=== PATIENT | female | born 1965 | race Caucasian/White ===

== ENCOUNTER 2021-11-08 11:35 | Inpatient (IN) | payer OTHER, SELFPAY ==
--- NOTE | ~2021-11-08 | XR_ITS ---
EXAMINATION: XR chest 1V portable EXAM DATE: 11/08/2021 15:11 INDICATION: COVID. Shortness of air. TECHNIQUE: Portable AP frontal chest x-ray was obtained. There is no prior study for comparison. FINDINGS: Diffuse airspace disease, COVID pneumonia. No pneumothorax or pleural effusion. Cardiomedia stinal silhouette is normal. There are no osseous abnormalities identified. IMPRESSION: Diffuse COVID pneumonia. Reviewed, dictated and finalized at location A. CE MATRON IMPRESSION: Diffuse COVID pneumonia.
--- NOTE | ~2021-11-08 | XR_ITS ---
EXAMINATION: XR chest 1V portable INDICATION: Shortness of breath TECHNIQUE: Portable AP chest at 0634 hours COMPARISON: 11/08/2021 FINDINGS: Diffuse interstitial and airspace opacities persist with slight interval improvement. No pl eural effusion or pneumothorax is identified. The cardiomediastinal silhouette is normal. IMPRESSION: 1. Diffuse lung disease with slight interval improvement, consistent with COVID 19 pneumonia. Reviewed, dictated and finalized at location A. H BOSS
--- NOTE | ~2021-11-08 | US_ITS ---
EXAMINATION: US abdomen limited DATE: 11/09/2021 15:39 INDICATION: Abnormal liver function tests. TECHNIQUE: Multiple grayscale and Doppler ultrasound images of the abdomen were obtained. COMPARISON: None FINDINGS: The visualized portions of the head, body, and tail of the pancreas are normal. The liver i s normal without focal lesion. No liver surface nodularity. There is normal flow in main portal vein. The gallbladder is normal in size. No gallstones or gallbladder wall thickening. There was no sonogr aphic [place] sign. The common duct is normal and measures 5 mm. IMPRESSION: 1. Normal right upper quadrant ultrasound. Reviewed, dictated and finalized at location A. E TELEVISION ACCESS COORDINATOR
--- NOTE | ~2021-11-08 | CT_ITS ---
EXAMINATION: CT abdomen pelvis w con DATE: 11/10/2021 14:33 INDICATION: Diarrhea. TECHNIQUE: Computed tomography (CT) of the abdomen and pelvis was performed with 100 mL Omnipaque 350 intravenous contrast. Automated exposure control and iterative reconstruction technique were employe d. The dose-length product was 763.59 mGy-cm. COMPARISON: Chest CT 11/08/2021 FINDINGS: The visualized portions of the lung bases demonstrate airspace and groundglass opacities in volving the lower lobes, right middle lobe, and lingula. No pleural effusion. The heart size is masoud l. No pericardial effusion. There is a small sliding hiatal hernia. The liver demonstrates focal stea tosis adjacent to ligamentum teres. The spleen, pancreas, and adrenal glands are normal. There are cy sts in the kidneys measuring up to 8 mm on the right. Pelvic floor relaxation is noted. There is dive rticulosis of the colon without evidence of diverticulitis. The appendix is normal. There are no path ologically enlarged lymph nodes. There is no free intraperitoneal fluid. There is mild thoracolumbar spondylosis. IMPRESSION: 1. Stable diffuse lung disease, consistent with COVID-19 pneumonia. 2. Small sliding hiatal hernia. Reviewed, dictated and finalized at location A. SETTER APPRENTICE
--- NOTE | ~2021-11-08 | CT_ITS ---
EXAMINATION: CTA chest PE protocol DATE: 11/12/2021 17:57 WATER RESOURCES ENGINEER INDICATION: Unable to take deep breath. Increasing d-dimer. Dyspnea. TECHNIQUE: Computed tomographic angiography (CTA) of the chest was performed with 100 mL Omnipaque-35 0 intravenous contrast. The dose-length product was 689.93 mGy-cm. Maximum intensity projection 3D-re constructions of the aorta and other arteries were constructed by the technologist on a separate work station. COMPARISON: None. FINDINGS: Study is technically adequate without evidence for pulmonary embolism. Extensive patchy lucinaa ateral airspace consolidation, consistent with pneumonia. Findings have progressed slightly compared with prior examination allowing for differences of technique. No evidence for aortic aneurysm or diss ection. Heart size normal. No significant pleural or pericardial effusion. The upper abdomen is gross ly unremarkable. No pneumothorax. Small hiatal hernia. Mild thoracic spondylosis. IMPRESSION: 1. No evidence for pulmonary embolism. 2: Subtle progression of extensive bilateral pneumonia. Reviewed, dictated and finalized at location A. R RESOURCES ENGINEER
--- NOTE | ~2021-11-08 | CT_ITS ---
EXAMINATION: CTA chest PE protocol EXAM DATE: 11/08/2021 17:56 INDICATION: Shortness of breath. TECHNIQUE: Spiral CTA of the chest (pulmonary arteries) was performed with 100 cc Omnipaque 350 intr avenous contrast injection. Images were acquired during the pulmonary arterial phase. Coronal maxi mum intensity projection 3D-reconstructions were created by the technologist on dedicated workstation . Axial, coronal and sagittal reformatted images were reviewed. The dose-length product (DLP) for t his examination was 696.77 mGy-cm. The exposure was tailored according to patient size (auto mA exp osure control), and iterative reconstruction (ASIR) was used as additional dose reduction technique. There is no prior study for comparison. FINDINGS: There are no pulmonary emboli in the 1st through 3rd order (central and interlobar) pulmon vasile arteries. Some loss of attenuation in the segmental pulmonary arteries due to respiratory motion , but no intraluminal filling defects suspected. No thoracic aortic dissection. Moderate to large amount of bilateral groundglass airspace disease, appearance consistent with acute stage COVID pneumo tyrese, please clinically correlate. There are no pleural or pericardial effusions. Tracheobronchial tree is patent. There is no mediastinal, hilar or axillary lymphadenopathy. There is no pneumotho rax. Heart normal in size. No evidence of coronary arterial calcification. There is small sliding gastroesophageal hiatal hernia. There is thoracic spondylosis without osteoblastic or osteolytic le sions identified. IMPRESSION: 1. Limited segmental evaluation, but no pulmonary emboli are suspected. 2. Diffuse COVID pneumonia. Reviewed, dictated and finalized at location A. EGNATING MACHINE OPERATOR
[2021-11-08 11:49] VITALS: BP 148/88; PULSE 95; RESP 24; TEMP 36.4; O2SAT 92
--- NOTE | 2021-11-08 15:13 | PC.NURSE ---
pt 85% on room air while ambulating
[2021-11-08] MEDS: DEXAMETHASONE SOD PHOS INJ 4 MG/ML VIAL 6 MG IV PUSH (15:17)
[2021-11-08 15:20] VITALS: BP 131/61; PULSE 92; RESP 27; O2SAT 98
[2021-11-08 15:25] LABS: Basophils Percent Auto 0.3 % (0.2-1.2); Hematocrit 40.5 % (37.0-47.0); Hemoglobin 13.4 g/dL (12.0-15.0); Immature Granulocyte Absolute 0.07 K/mm3 (0.00-0.031); Immature Granulocyte Percent A 0.8 % (0-0.5); Lymphocytes Absolute Auto 0.63 K/mm3 (0.9-3.2); Lymphocytes Percent Auto 6.8 % (18.3-44.2); Mean Corpuscular HGB Conc 33.1 g/dl (32-36); Mean Corpuscular Volume 90.6 fl (80-100); Mean Platelet Volume 9.9 fl (7.4-10.4); Monocytes Absolute Auto 0.2 K/mm3 (0.1-0.6); Monocytes Percent Auto 1.9 % (2.6-8.5); Neutrophils Absolute Auto 8.4 K/mm3 (1.3-6.7); Neutrophils Percent Auto 90.2 % (45.5-73.1); Platelet Count Result 185 k/mm3 (150-375); Red Blood Count 4.47 M/mm3 (4.2-5.4); Red Cell Distribution Width 13.6 % (11.5-14.5); White Blood Count 9.3 K/mm3 (4.5-10.0)
[2021-11-08 15:42] LABS: Alanine Aminotransferase 171 U/L (4-35); Albumin Level 3.8 g/dL (3.5-5.1); Alkaline Phosphatase 153 U/L (38-126); Anion Gap 11 mmol/L (8-16); Aspartate Amino Transferase 150 U/L (14-36); Bilirubin,Total 0.5 mg/dL (0.2-1.3); Blood Urea Nitrogen 11 mg/dL (7-17); CRP > 9.0 mg/dL (<1.0); Calcium 8.2 mg/dL (8.4-10.2); Carbon Dioxide 24 mmol/L (22-30); Chloride 99 mmol/L (98-107); Estimated CRCL calculation 82 ml/min; Estimated Glomerular Filt Rate > 60; Glucose 120 mg/dL (65-110); Potassium 3.6 mmol/L (3.4-5.0); Sodium 134 mmol/L (137-145)
--- NOTE | 2021-11-08 15:53 | ED.SOB ---
HPI - SOB/Dyspnea General Chief Complaint: Shortness of Breath/Dyspnea Stated Complaint: covid positive/sob Time Seen by Provider: 11/08/21 14:49 History of Present Illness HPI Narrative: Patient is a 56-year-old female who presents ER with shortness of breath. Worsening over the last 2 to 3 days. Patient was diagnosed with COVID-19 on 10/31/2021. Patient is unvaccinated. Patient reports he has been having fevers and chills. She has been having progressive weakness and fatigue as well. She does report she has mild improvement with shortness of breath when she takes Tylenol because she feels like she can get a better breath. No hemoptysis. Related Data Home Medications Medication Instructions Recorded Confirmed aspirin [Adult Aspirin] 11/08/21 levothyroxine 11/08/21 Allergies Allergy/AdvReac Type Severity Reaction Status Date / Time Cephalosporins AdvReac Hives Verified 11/08/21 15:18 Review of Systems Review of Systems: All systems reviewed & are unremarkable except as noted in HPI and below Constitutional: Constitutional: Reports chills, Reports fatigue, Reports fever(s) and Reports weakness ENT: Denies nasal congestion and Denies sore throat Cardiovascular: Cardiovascular: Denies chest pain, Denies rapid heart rate and Denies radiating jaw, neck or arm pain Respiratory: Respiratory: Reports chest congestion, Reports cough, Reports dyspnea and Denies wheezing Gastrointestinal: Gastrointestinal: Denies abdominal pain, Denies nausea and Denies vomiting Genitourinary: Genitourinary: Denies nocturia and Denies dysuria PMFSH Past Medical History Medical History (Updated 11/08/21 @ 18:05 by Lu Brooke PA-C) Hypothyroidism Surgical History Surgical History (Updated 11/08/21 @ 16:20 by Gopi Perez MD) No history of previous surgery Social History Social History (Updated 11/08/21 @ 18:06 by Lu Brooke PA-C) Social History: The patient lives in [place] with her family. She is self-employed. Lifelong nonsmoker. No alcohol or illicit substance abuse. She designates her , Bright Wilkes, as her surrogate decision maker and she wishes to be a full code. Exam Narrative: GENERAL: Ill-appearing, well-nourished, and in no acute distress. HEAD: Normocephalic, atraumatic. CHEST: Diffuse rales with poor inspiratory lung volumes. Mild respiratory distress. HEART: Regular rate and rhythm. Normal peripheral pulses. ABDOMEN: Soft, nontender, nondistended. EXTREMITIES: Normal range of motion. No edema. SKIN: Warm, dry, no rash. NEURO: Alert and oriented x3. PSYCH: Normal mood and affect. Course Course Emergency Course: Patient informed results. Admit to hospitalist service. After discussing with hospitalist there would like patient to have a CTA of the chest rule out PE. Patient will begin receiving scheduled albuterol inhaler treatments. She also received IV Decadron. Vital Signs Vital signs: Vital Signs Temperature 97.6 F 11/08/21 11:49 Pulse Rate 95 11/08/21 11:49 Respiratory Rate 24 H 11/08/21 11:49 Blood Pressure 148/88 H 11/08/21 11:49 Pulse Oximetry 92 11/08/21 11:49 Temperature 97.6 F 11/08/21 11:49 Pulse Rate 92 11/08/21 15:20 Respiratory Rate 27 H 11/08/21 15:20 Blood Pressure 131/61 11/08/21 15:20 Pulse Oximetry 98 11/08/21 15:20 MDM - SOB/Dyspnea Lab Data Result diagrams: 11/08/21 15:18 11/08/21 15:18 Labs: Lab Results 11/08/21 11/08/21 Range/Units 15:18 15:18 WBC 9.3 (4.5-10.0) K/mm3 RBC 4.47 (4.2-5.4) M/mm3 Hgb 13.4 (12.0-15.0) g/dL Hct 40.5 (37.0-47.0) % MCV 90.6 (80-100) fl MCH 30.0 (26-34) pg MCHC 33.1 (32-36) g/dl RDW 13.6 (11.5-14.5) % Plt Count 185 (150-375) k/mm3 MPV 9.9 (7.4-10.4) fl Immature Gran % (Auto) 0.8 H (0-0.5) % Neut % (Auto) 90.2 H (45.5-73.1) % Lymph % (Auto) 6.8 L (18.3-44.2) % [place] % (Auto) 1.9 L
[2021-11-08 18:39] LABS: D Dimer 0.86 ug/mL (<0.48)
[2021-11-08 18:40] LABS: Lactate Dehydrogenase 1408 U/L (313-618)
[2021-11-08 18:50] VITALS: BP 138/73; PULSE 107; RESP 37; O2SAT 93
[2021-11-08 19:20] LABS: Ferritin > 1000.00 ng/mL (11.1-264)
--- NOTE | 2021-11-08 19:50 | PM.IMHP ---
H&P: HPI History of Present Illness Date/Time: 11/08/21 19:50 Chief Complaint: Shortness of breath. Narrative: This is a 56-year-old female with hypothyroidism who presented to the emergency department earlier today from home for evaluation of shortness of breath. She has not been feeling well for a little over a week with symptoms to include cough, fever, chills, decrease in smell and taste, decreased oral intake, fatigue, weakness, and increasing shortness of breath. She has been taking Tylenol and Mucinex at home which seems to help her symptoms for a few hours. Her has had similar symptoms but he is feeling better. She reports testing positive for COVID 19 on 10/31/2021, I believe on a home test, and she has been resting home since that time. Chest x-ray and chest CTA today showed diffuse pneumonia consistent with COVID. Chest CTA was limited due to motion however no pulmonary emboli are suspected. At rest she has no oxygen requirement however with ambulation her SpO2 reportedly dropped into the upper 80s and she is being admitted in this setting. The patient I did discuss possible treatments for COVID and it looks like she received a dose of dexamethasone in the emergency department. As she has no oxygen requirement, dexamethasone is not indicated however due to her elevated inflammatory markers she would be a candidate for remdesivir however she would like to be ?conservative with treatment? and at this time she does not wish for remdesivir or dexamethasone. Review of Systems Review of Systems: Twelve systems were reviewed. She denies chest pain pleuritic pain. No orthopnea, PND, or lower extremity edema. No calf pain or tenderness. Except as documented, all other systems were reviewed and are negative. [facility] Past Medical History Medical History (Updated 11/08/21 @ 22:52 by Lu Brooke PA-C) Hypothyroidism Surgical History Surgical History (Updated 11/08/21 @ 16:20 by Gopi Perez MD) No history of previous surgery Family History Family History (Updated 11/08/21 @ 22:42 by Lu Brooke PA-C) Other No pertinent family history Social History Social History (Updated 11/08/21 @ 22:43 by Lu Brooke PA-C) Social History: The patient lives in [place] with her family. She is self-employed and does landscaping. She is a lifelong nonsmoker. No alcohol or illicit substance abuse. She designates her , Bright Wilkes, as her surrogate decision maker and she wishes to be a full code. Meds Home Medications and Allergies Home Medications Medication Instructions Recorded Confirmed Type aspirin [Adult Aspirin] 11/08/21 History levothyroxine 11/08/21 History Allergies Allergy/AdvReac Type Severity Reaction Status Date / Time Cephalosporins AdvReac Hives Verified 11/08/21 15:18 Vital Signs Vital Signs - 24 hr 11/08/21 11:49 11/08/21 15:20 Temperature 97.6 F Pulse Rate 95 92 Respiratory Rate 24 H 27 H Blood Pressure 148/88 H 131/61 Pulse Oximetry 92 98 Exam Narrative: General: Moderately ill-appearing female sitting up in bed. Weight: 86 kg. BMI: 32.5. HEENT: PERRL, EOMI. Sclerae anicteric. Face is flushed. Tacky mucous membranes. Neck: Supple. Respiratory: Mildly tachypneic, speaking in full sentences. Coarse crackles throughout the lung waller. Cardiovascular: Tachycardic with S1-S2. Gastrointestinal: Abdomen is soft, nontender, and nondistended with positive bowel sounds. Skin: Hot and dry. Extremities: No cyanosis, clubbing, or edema. Radial and pedal pulses intact. Neurological: Alert. Cranial nerves 2-12 are grossly intact. No gross focal deficits to casual conversation. Psychiatric: Appropriate mood and affect. H&P: Results Labs Labs: Short CBC 11/08/21 Range/Units 15:18 WBC 9.3 (4.5-10.0) K/mm3 Hgb 13.4 (12.0-15.0) g/dL Hct 40.5 (37.0-47.0) % Plt Count 185 (150-375) k/mm3 BMP 11/08/21 15:18 Sodium 134
[2021-11-08 20:00] VITALS: BP 143/76; PULSE 110; RESP 18; TEMP 37.8; O2SAT 90
--- NOTE | 2021-11-08 20:06 | PC.NURSE ---
This patient, Rudolph Wilkes, was admitted to [facility] Surg Room [id number]. Patient/family oriented to hospital policies and general routines including ID bracelet, bed and alarms, visiting hours, pain management, procedures, bathroom and other care routines, personal items, smoking policy, room service/diet, and visiting hours. Information on how to activate the Rapid Response Team has been discussed. Patient/Family are encouraged to report perceived risks to care and to ask questions if they do not understand what they are told or what they should do.
[2021-11-08] MEDS: SODIUM CHLORIDE 0.9% IV 1,000 ML 100 ML IV CONT (21:15)
[2021-11-08] MEDS: ACETAMINOPHEN 325 MG TABLET 650 MG PO (21:16)
--- NOTE | 2021-11-08 22:57 | ECG_ITS ---
Measurements Intervals [place] Rate: 95 P: 19 MO: 114 QRS: 21 QRSD: 82 T: -6 QT: 341 QTc: 430 Interpretive Statements SINUS RHYTHM WITH SHORT MO INTERVAL NONSPECIFIC ST & T-WAVE ABNORMALITY- DIFFUSE LEADS BASELINE ARTIFACT- V3 BORDERLINE ECG Electronically Signed On 11-09-2021 6:02:57 CERTIFIED PROSTHETIST by [place] D.O.
[2021-11-08 23:05] VITALS: BMI 34.6
[2021-11-09] VITALS (13 sets, daily range): BP systolic 115–140; BP diastolic 64–76; PULSE 59–97; RESP 16–24; TEMP 36.3–38.3; O2SAT 92–96
[2021-11-09 00:43] LABS: Prothrombin Time 13.2 Seconds (11.1-14.7)
[2021-11-09] MEDS: ACETAMINOPHEN 325 MG TABLET 650 MG PO ×3 (00:56→18:30)
[2021-11-09] MEDS: ONDANSETRON INJ 4 MG/2 ML VIAL IV PUSH (00:56)
[2021-11-09] MEDS: REMDESIVIR 200 MG/NS 250 ML 200 MG/250 ML BAG 250 MG IVPB (02:00)
[2021-11-09] MEDS: ALBUTEROL SULFATE (*SP) INHALER 4 PUFF INHALATION ×4 (03:30→20:44)
--- NOTE | 2021-11-09 05:31 | PC.NURSE ---
per patient she is unsure of home levothyroxine dosage, no external med rec... She said may potentially know dosage but to call him in AM
[2021-11-09] MEDS: ENOXAPARIN 40 MG/0.4 ML SYRINGE SUB-Q (08:47)
--- NOTE | 2021-11-09 09:20 | P.PNIM_ITS ---
Progress Note: A&P Assessment and Plan (1) Pneumonia: Code(s): J18.9 - Pneumonia, unspecified organism Status: Acute Assessment and Plan: * Chest x-ray and CTA Imaging shows diffuse pneumonia consistent with COVID * reports a positive COVID test on 10/31/2021 * Continue Levaquin for now * Blood and sputum cultures pending * SARS-CoV-2 by PCR pending * dexamethasone and remdesivir day 2 * Inflammatory markers: LDH 1801, CRP 31.0, D-dimer 0.86, ferritin 1870, trend every other day * Albuterol q.6 scheduled and p.r.n. * Lovenox 40 mg subQ daily * IS and Digna therapy. * Supplemental oxygen wean to maintain greater than 92% (2) Pneumonia due to COVID-19 virus: Code(s): U07.1 - COVID-19; J12.82 - Pneumonia due to coronavirus disease 2018 Status: Acute Assessment and Plan: * Pneumonia most likely due to COVID-19 though SARS-CoV-2 by PCR is still pending. * Plan is as detailed above. (3) Acute respiratory failure: Code(s): J96.00 - Acute respiratory failure, unspecified whether with hypoxia or hypercapnia Status: Acute Assessment and Plan: * SpO2 dropped into the mid 80s * Supplemental oxygen started * Wean oxygen to maintain saturation greater than 90% * Trend SpO2 * Breathing treatment (4) Hypothyroidism: Code(s): E03.9 - Hypothyroidism, unspecified Status: Acute Assessment and Plan: * Continue levothyroxine * TSH low at 0.159, Free T4 pending (5) Elevated LFTs: Code(s): R79.89 - Other specified abnormal findings of blood chemistry Status: Acute Assessment and Plan: * AST/ALT 244/249 today * Most likely related to infection/COVID * hepatitis panel negative * RUQ ultrasound ordered (6) Fever and chills: Code(s): R50.9 - Fever, unspecified Status: Acute Assessment and Plan: * Temp noted to be as high as 38.3 * Tylenol PRN * Blood cultures pending * Trend Temp Time Spent With Patient Time with patient: Greater than 35 minutes Subjective Date/time seen: 11/09/21 0920 Interval history: Date/Time: 11/08/21 19:50 Narrative: This is a 56-year-old female with hypothyroidism who presented to the emergency department earlier today from home for evaluation of shortness of breath. She has not been feeling well for a little over a week with symptoms to include cough, fever, chills, decrease in smell and taste, decreased oral intake, fatigue, weakness, and increasing shortness of breath. She has been taking Tylenol and Mucinex at home which seems to help her symptoms for a few hours. Her has had similar symptoms but he is feeling better. She reports testing positive for COVID 19 on 10/31/2021, I believe on a home test, and she has been resting home since that time. Chest x-ray and chest CTA today showed diffuse pneumonia consistent with COVID. Chest CTA was limited due to motion however no pulmonary emboli are suspected. At rest she has no oxygen requirement however with ambulation her SpO2 reportedly dropped into the upper 80s and she is being admitted in this setting. The patient I did discuss possible treatments for COVID and it looks like she received a dose of dexamethasone in the emergency department. As she has no oxygen requirement, dexamethasone is not indicated however due to her elevated inflammatory markers she would be a candidate for remdesivir however she would like to be ?conservative with treatment? and at this time
--- NOTE | 2021-11-09 09:20 | PM.IMPN ---
Progress Note: A&P Assessment and Plan (1) Pneumonia: Code(s): J18.9 - Pneumonia, unspecified organism Status: Acute Assessment and Plan: Chest x-ray and CTA Imaging shows diffuse pneumonia consistent with COVID reports a positive COVID test on 10/31/2021 Continue Levaquin for now Blood and sputum cultures pending SARS-CoV-2 by PCR pending dexamethasone and remdesivir day 2 Inflammatory markers: LDH 1801, CRP 31.0, D-dimer 0.86, ferritin 1870, trend every other day Albuterol q.6 scheduled and p.r.n. Lovenox 40 mg subQ daily IS and Digna therapy. Supplemental oxygen wean to maintain greater than 92% (2) Pneumonia due to COVID-19 virus: Code(s): U07.1 - COVID-19; J12.82 - Pneumonia due to coronavirus disease 2019 Status: Acute Assessment and Plan: Pneumonia most likely due to COVID-19 though SARS-CoV-2 by PCR is still pending. Plan is as detailed above. (3) Acute respiratory failure: Code(s): J96.00 - Acute respiratory failure, unspecified whether with hypoxia or hypercapnia Status: Acute Assessment and Plan: SpO2 dropped into the mid 80s Supplemental oxygen started Wean oxygen to maintain saturation greater than 90% Trend SpO2 Breathing treatment (4) Hypothyroidism: Code(s): E03.9 - Hypothyroidism, unspecified Status: Acute Assessment and Plan: Continue levothyroxine TSH low at 0.159, Free T4 pending (5) Elevated LFTs: Code(s): R79.89 - Other specified abnormal findings of blood chemistry Status: Acute Assessment and Plan: AST/ALT 244/249 today Most likely related to infection/COVID hepatitis panel negative RUQ ultrasound ordered (6) Fever and chills: Code(s): R50.9 - Fever, unspecified Status: Acute Assessment and Plan: Temp noted to be as high as 38.3 Tylenol PRN Blood cultures pending Trend Temp Time Spent With Patient Time with patient: Greater than 35 minutes Subjective Date/time seen: 11/09/21 0920 Interval history: Date/Time: 11/08/21 19:50 Narrative: This is a 56-year-old female with hypothyroidism who presented to the emergency department earlier today from home for evaluation of shortness of breath. She has not been feeling well for a little over a week with symptoms to include cough, fever, chills, decrease in smell and taste, decreased oral intake, fatigue, weakness, and increasing shortness of breath. She has been taking Tylenol and Mucinex at home which seems to help her symptoms for a few hours. Her has had similar symptoms but he is feeling better. She reports testing positive for COVID 19 on 10/31/2021, I believe on a home test, and she has been resting home since that time. Chest x-ray and chest CTA today showed diffuse pneumonia consistent with COVID. Chest CTA was limited due to motion however no pulmonary emboli are suspected. At rest she has no oxygen requirement however with ambulation her SpO2 reportedly dropped into the upper 80s and she is being admitted in this setting. The patient I did discuss possible treatments for COVID and it looks like she received a dose of dexamethasone in the emergency department. As she has no oxygen requirement, dexamethasone is not indicated however due to her elevated inflammatory markers she would be a candidate for remdesivir however she would like to be ?conservative with treatment? and at this time she does not wish for remdesivir or dexamethasone. The patient now has an oxygen requirement. After further discussion she is agreeable to start dexamethasone and remdesivir. Date/Time 11/09/21 0920 Patient is resting in bed looks very tired and lethargic today. Patient stated that she is having issues with very dry mouth and has having a hard time keeping it moist. Patient also stated that she is having hard time taking a deep breath. She does have a coug
[2021-11-09 09:34] LABS: Hematocrit 40.1 % (37.0-47.0); Hemoglobin 13.2 g/dL (12.0-15.0); Mean Corpuscular HGB Conc 32.9 g/dl (32-36); Mean Corpuscular Hemoglobin 30.3 pg (26-34); Mean Corpuscular Volume 92.2 fl (80-100); Platelet Count Result 232 k/mm3 (150-375); Red Blood Count 4.35 M/mm3 (4.2-5.4); Red Cell Distribution Width 13.6 % (11.5-14.5); White Blood Count 6.7 K/mm3 (4.5-10.0)
[2021-11-09 09:43] LABS: Alanine Aminotransferase 249 U/L (4-35); Albumin Level 3.8 g/dL (3.5-5.1); Alkaline Phosphatase 154 U/L (38-126); Anion Gap 7 mmol/L (8-16); Aspartate Amino Transferase 244 U/L (14-36); Bilirubin,Total 0.4 mg/dL (0.2-1.3); Blood Urea Nitrogen 11 mg/dL (7-17); Calcium 8.1 mg/dL (8.4-10.2); Carbon Dioxide 26 mmol/L (22-30); Chloride 101 mmol/L (98-107); Estimated CRCL calculation 85 ml/min; Estimated Glomerular Filt Rate > 60; Glucose 121 mg/dL (65-110); Lactate Dehydrogenase 1801 U/L (313-618); Magnesium 2.4 mg/dL (1.6-2.3); Potassium 3.6 mmol/L (3.4-5.0); Sodium 134 mmol/L (137-145)
[2021-11-09 10:28] LABS: Hepatitis B Surface Antigen Negative (Negative)
[2021-11-09 10:33] LABS: HAV RESULT Negative (Negative); Hepatitis B Core IgM Result Negative (Negative)
[2021-11-09 10:45] LABS: Hepatitis C Virus Antibody Negative (Negative)
[2021-11-09 10:56] LABS: Thyroid Stimulating Hormone Reflex 0.159 uIU/mL (0.465-4.68)
[2021-11-09 13:31] LABS: Free T4 Free Thyroxine Reflex 1.57 ng/dL (0.78-2.19)
[2021-11-09 14:20] LABS: SARS-CoV-2 RNA PCR Positive
[2021-11-09] MEDS: REMDESIVIR 100 MG/NS 250 ML 100 MG/250 ML BAG 250 MG IVPB (22:04)
[2021-11-10] VITALS (8 sets, daily range): BP systolic 110–128; BP diastolic 67–79; PULSE 79–91; RESP 16–24; TEMP 36.2–36.9; O2SAT 93–95
[2021-11-10] MEDS: ALBUTEROL SULFATE (*SP) INHALER 4 PUFF INHALATION ×4 (02:15→20:35)
[2021-11-10 06:27] LABS: Basophils Percent Auto 0.2 % (0.2-1.2); Hematocrit 41.2 % (37.0-47.0); Hemoglobin 13.4 g/dL (12.0-15.0); Immature Granulocyte Absolute 0.13 K/mm3 (0.00-0.031); Immature Granulocyte Percent A 1.6 % (0-0.5); Lymphocytes Absolute Auto 0.82 K/mm3 (0.9-3.2); Lymphocytes Percent Auto 10.2 % (18.3-44.2); Mean Corpuscular HGB Conc 32.5 g/dl (32-36); Mean Corpuscular Hemoglobin 29.5 pg (26-34); Mean Corpuscular Volume 90.7 fl (80-100); Mean Platelet Volume 9.9 fl (7.4-10.4); Monocytes Absolute Auto 0.4 K/mm3 (0.1-0.6); Monocytes Percent Auto 5.5 % (2.6-8.5); Neutrophils Absolute Auto 6.7 K/mm3 (1.3-6.7); Neutrophils Percent Auto 82.5 % (45.5-73.1); Platelet Count Result 288 k/mm3 (150-375); Red Blood Count 4.54 M/mm3 (4.2-5.4); Red Cell Distribution Width 13.7 % (11.5-14.5); White Blood Count 8.1 K/mm3 (4.5-10.0)
[2021-11-10 06:41] LABS: Alanine Aminotransferase 269 U/L (4-35); Albumin Level 3.6 g/dL (3.5-5.1); Alkaline Phosphatase 179 U/L (38-126); Anion Gap 13 mmol/L (8-16); Aspartate Amino Transferase 247 U/L (14-36); Bilirubin,Total 0.5 mg/dL (0.2-1.3); Blood Urea Nitrogen 17 mg/dL (7-17); Calcium 8.3 mg/dL (8.4-10.2); Carbon Dioxide 23 mmol/L (22-30); Chloride 103 mmol/L (98-107); Estimated CRCL calculation 85 ml/min; Estimated Glomerular Filt Rate > 60; Glucose 111 mg/dL (65-110); Magnesium 2.6 mg/dL (1.6-2.3); Potassium 3.7 mmol/L (3.4-5.0); Sodium 139 mmol/L (137-145)
[2021-11-10 07:06] LABS: INR 1.1; Prothrombin Time 13.8 Seconds (11.1-14.7)
[2021-11-10] MEDS: guaiFENesin 12 HR 600 MG TABCR PO ×2 (09:05→22:19)
[2021-11-10] MEDS: ENOXAPARIN 40 MG/0.4 ML SYRINGE SUB-Q (09:06)
--- NOTE | 2021-11-10 10:40 | PM.IMPN ---
Progress Note: A&P Assessment and Plan (1) Pneumonia: Code(s): J18.9 - Pneumonia, unspecified organism Status: Acute Assessment and Plan: Chest x-ray and CTA Imaging shows diffuse pneumonia consistent with COVID reports a positive COVID test on 10/31/2021 Continue Levaquin for now Blood and sputum cultures pending SARS-CoV-2 by PCR positive dexamethasone and remdesivir day 3, increase Decadron to BID Inflammatory markers: LDH 1801, CRP 31.0, D-dimer 0.86, ferritin 1870, trend every other day Albuterol q.6 scheduled and p.r.n. Lovenox 40 mg subQ daily IS and Digna therapy. Supplemental oxygen wean to maintain greater than 92% Added tocilizumab 733mg IV (2) Pneumonia due to COVID-19 virus: Code(s): U07.1 - COVID-19; J12.82 - Pneumonia due to coronavirus disease 2018 Status: Acute Assessment and Plan: Pneumonia most likely due to COVID-19 though SARS-CoV-2 by PCR positive Plan is as detailed above. (3) Acute respiratory failure: Code(s): J96.00 - Acute respiratory failure, unspecified whether with hypoxia or hypercapnia Status: Acute Assessment and Plan: SpO2 dropped into the mid 80s Supplemental oxygen started Wean oxygen to maintain saturation greater than 90% Trend SpO2 Breathing treatment (4) Hypothyroidism: Code(s): E03.9 - Hypothyroidism, unspecified Status: Acute Assessment and Plan: Continue levothyroxine TSH low at 0.159, Free T4 1.57, Free T3 0.60 (5) Elevated LFTs: Code(s): R79.89 - Other specified abnormal findings of blood chemistry Status: Acute Assessment and Plan: AST/ALT 247/269 today Most likely related to infection/COVID hepatitis panel negative RUQ ultrasound normal ultrasound (6) Fever and chills: Code(s): R50.9 - Fever, unspecified Status: Acute Assessment and Plan: Temp noted to be as high as 38.3 Tylenol PRN Blood cultures pending Trend Temp (7) Diarrhea: Code(s): R19.7 - Diarrhea, unspecified Status: Acute Assessment and Plan: Complaints of diarrhea ABD ct just shows covid added Florastor and banatrol Added Imodium Trend output Subjective Date/time seen: 11/10/21 1040 Interval history: Date/Time: 11/08/21 19:50 Narrative: This is a 56-year-old female with hypothyroidism who presented to the emergency department earlier today from home for evaluation of shortness of breath. She has not been feeling well for a little over a week with symptoms to include cough, fever, chills, decrease in smell and taste, decreased oral intake, fatigue, weakness, and increasing shortness of breath. She has been taking Tylenol and Mucinex at home which seems to help her symptoms for a few hours. Her has had similar symptoms but he is feeling better. She reports testing positive for COVID 19 on 10/31/2021, I believe on a home test, and she has been resting home since that time. Chest x-ray and chest CTA today showed diffuse pneumonia consistent with COVID. Chest CTA was limited due to motion however no pulmonary emboli are suspected. At rest she has no oxygen requirement however with ambulation her SpO2 reportedly dropped into the upper 80s and she is being admitted in this setting. The patient I did discuss possible treatments for COVID and it looks like she received a dose of dexamethasone in the emergency department. As she has no oxygen requirement, dexamethasone is not indicated however due to her elevated inflammatory markers she would be a candidate for remdesivir however she would like to be ?conservative with treatment? and at this time she does not wish for remdesivir or dexamethasone. The patient now has an oxygen requirement. After further discussion she is agreeable to start dexamethasone and remdesivir. Date/Time 11/09/21 0920 Patient is resting in
--- NOTE | 2021-11-10 10:40 | P.PNIM_ITS ---
Progress Note: A&P Assessment and Plan (1) Pneumonia: Code(s): J18.9 - Pneumonia, unspecified organism Status: Acute Assessment and Plan: * Chest x-ray and CTA Imaging shows diffuse pneumonia consistent with COVID * reports a positive COVID test on 10/31/2021 * Continue Levaquin for now * Blood and sputum cultures pending * SARS-CoV-2 by PCR positive * dexamethasone and remdesivir day 3, increase Decadron to BID * Inflammatory markers: LDH 1801, CRP 31.0, D-dimer 0.86, ferritin 1870, trend every other day * Albuterol q.6 scheduled and p.r.n. * Lovenox 40 mg subQ daily * IS and Digna therapy. * Supplemental oxygen wean to maintain greater than 92% * Added tocilizumab 733mg IV (2) Pneumonia due to COVID-19 virus: Code(s): U07.1 - COVID-19; J12.82 - Pneumonia due to coronavirus disease 2018 Status: Acute Assessment and Plan: * Pneumonia most likely due to COVID-19 though SARS-CoV-2 by PCR positive * Plan is as detailed above. (3) Acute respiratory failure: Code(s): J96.00 - Acute respiratory failure, unspecified whether with hypoxia or hypercapnia Status: Acute Assessment and Plan: * SpO2 dropped into the mid 80s * Supplemental oxygen started * Wean oxygen to maintain saturation greater than 90% * Trend SpO2 * Breathing treatment (4) Hypothyroidism: Code(s): E03.9 - Hypothyroidism, unspecified Status: Acute Assessment and Plan: * Continue levothyroxine * TSH low at 0.159, Free T4 1.57, Free T3 0.60 (5) Elevated LFTs: Code(s): R79.89 - Other specified abnormal findings of blood chemistry Status: Acute Assessment and Plan: * AST/ALT 247/269 today * Most likely related to infection/COVID * hepatitis panel negative * RUQ ultrasound normal ultrasound (6) Fever and chills: Code(s): R50.9 - Fever, unspecified Status: Acute Assessment and Plan: * Temp noted to be as high as 38.3 * Tylenol PRN * Blood cultures pending * Trend Temp (7) Diarrhea: Code(s): R19.7 - Diarrhea, unspecified Status: Acute Assessment and Plan: * Complaints of diarrhea * ABD ct just shows covid * added Florastor and banatrol * Added Imodium * Trend output Subjective Date/time seen: 11/10/21 1040 Interval history: Date/Time: 11/08/21 19:50 Narrative: This is a 56-year-old female with hypothyroidism who presented to the emergency department earlier today from home for evaluation of shortness of breath. She has not been feeling well for a little over a week with symptoms to include cough, fever, chills, decrease in smell and taste, decreased oral intake, fatigue, weakness, and increasing shortness of breath. She has been taking Tylenol and Mucinex at home which seems to help her symptoms for a few hours. Her has had similar symptoms but he is feeling better. She reports testing positive for COVID 19 on 10/31/2021, I believe on a home test, and she has been resting home since that time. Chest x-ray and chest CTA today showed diffuse pneumonia consistent with COVID. Chest CTA was limited due to motion however no pulmonary emboli are suspected. At rest she has no oxygen requirement however with ambulation her SpO2 reportedly dropped into the upper 80s and she is being admitted in this setting. The patient I did discuss possibl e treatments for COVID and it looks l
[2021-11-10] MEDS: LOPERAMIDE HCL 2 MG CAPSULE PO (17:21)
[2021-11-10 17:51] LABS: Add Urine Microscopic? YES; Appearance Urine Clear (Clear); Bilirubin Urine Negative (Negative); Blood Urine 1+ (Negative); Color Urine Yellow (Yellow); Glucose Urine UA Negative (Negative); Ketones Urine Negative (Negative); Leukocyte Esterase Ur Trace LEU/UL (Negative); Nitrate Urine Negative (Negative); Protein Urine Negative (Negative); RBC Urine 0-2 /hpf (0-2); Specific Grav Ur 1.025 (1.001-1.035); Squamous Epithelial Cell Urine Rare /hpf (Few); Urobilinogen Urine Negative mg/dL (<2.0); WBC Urine 0-3 /hpf
[2021-11-10] MEDS: REMDESIVIR 100 MG/NS 250 ML 100 MG/250 ML BAG 250 MG IVPB (22:20)
[2021-11-11] VITALS (7 sets, daily range): BP systolic 110–135; BP diastolic 71–92; PULSE 71–78; RESP 16–18; TEMP 36.3–37.6; O2SAT 88–97
[2021-11-11] MEDS: ALBUTEROL SULFATE (*SP) INHALER 4 PUFF INHALATION ×3 (02:00→21:00)
[2021-11-11] MEDS: LEVOTHYROXINE SODIUM 125 MCG TABLET PO (06:14)
[2021-11-11 07:56] LABS: Basophils Percent Auto 0.7 % (0.2-1.2); Hematocrit 41.9 % (37.0-47.0); Hemoglobin 13.9 g/dL (12.0-15.0); Immature Granulocyte Percent A 2.2 % (0-0.5); Lymphocytes Absolute Auto 1.16 K/mm3 (0.9-3.2); Lymphocytes Percent Auto 25.3 % (18.3-44.2); Mean Corpuscular HGB Conc 33.2 g/dl (32-36); Mean Corpuscular Hemoglobin 30.1 pg (26-34); Mean Corpuscular Volume 90.7 fl (80-100); Mean Platelet Volume 9.6 fl (7.4-10.4); Monocytes Absolute Auto 0.3 K/mm3 (0.1-0.6); Monocytes Percent Auto 6.5 % (2.6-8.5); Neutrophils Percent Auto 65.3 % (45.5-73.1); Platelet Count Result 335 k/mm3 (150-375); Red Blood Count 4.62 M/mm3 (4.2-5.4); Red Cell Distribution Width 13.6 % (11.5-14.5); White Blood Count 4.6 K/mm3 (4.5-10.0)
[2021-11-11 08:06] LABS: INR 1.1; Prothrombin Time 14.2 Seconds (11.1-14.7)
[2021-11-11 08:08] LABS: D Dimer 1.69 ug/mL (<0.48)
[2021-11-11 08:14] LABS: NT Pro B Type Natriuretic Pept 266 pg/mL (5-100)
[2021-11-11] MEDS: ENOXAPARIN 40 MG/0.4 ML SYRINGE SUB-Q (08:17)
[2021-11-11] MEDS: guaiFENesin 12 HR 600 MG TABCR PO ×2 (08:17→21:52)
[2021-11-11] MEDS: ASPIRIN 81 MG CHEWABLE TABLET PO (08:17)
[2021-11-11 08:30] LABS: Alanine Aminotransferase 276 U/L (4-35); Albumin Level 3.6 g/dL (3.5-5.1); Alkaline Phosphatase 175 U/L (38-126); Anion Gap 9 mmol/L (8-16); Aspartate Amino Transferase 161 U/L (14-36); Bilirubin,Total 0.7 mg/dL (0.2-1.3); Blood Urea Nitrogen 15 mg/dL (7-17); CRP 13.3 mg/dL (<1.0); Calcium 8.8 mg/dL (8.4-10.2); Carbon Dioxide 24 mmol/L (22-30); Chloride 104 mmol/L (98-107); Estimated CRCL calculation 98 ml/min; Estimated Glomerular Filt Rate > 60; Glucose 109 mg/dL (65-110); Magnesium 2.7 mg/dL (1.6-2.3); Potassium 3.9 mmol/L (3.4-5.0); Sodium 137 mmol/L (137-145)
--- NOTE | 2021-11-11 10:43 | PCRCNOTE ---
Addendum entered by Dana Canas RRT 11/11/21 10:51: Note was entered under the wrong therapist name. Note was entered by Dana Canas RRT Original Note: Window of time for administration has passed. See next scheduled administration.
--- NOTE | 2021-11-11 13:00 | PM.IMPN ---
Progress Note: A&P Assessment and Plan (1) Pneumonia: Code(s): J18.9 - Pneumonia, unspecified organism Status: Acute Assessment and Plan: Chest x-ray and CTA Imaging shows diffuse pneumonia consistent with COVID Chest x-ray Diffuse lung disease with slight interval improvement, consistent with COVID 19 pneumonia. reports a positive COVID test on 10/31/2021 Continue Levaquin for now Blood culture NGTD sputum cultures pending SARS-CoV-2 by PCR positive dexamethasone and remdesivir day 4, increase Decadron to BID Inflammatory markers: LDH 1801, CRP 31.0, D-dimer 0.86, ferritin 1870, trend every other day Albuterol q.6 scheduled and p.r.n. Lovenox 40 mg subQ daily IS and Digna therapy. Supplemental oxygen wean to maintain greater than 92% Added tocilizumab 733mg IV (2) Pneumonia due to COVID-19 virus: Code(s): U07.1 - COVID-19; J12.82 - Pneumonia due to coronavirus disease 2018 Status: Acute Assessment and Plan: Pneumonia most likely due to COVID-19 though SARS-CoV-2 by PCR positive Plan is as detailed above. (3) Acute respiratory failure: Code(s): J96.00 - Acute respiratory failure, unspecified whether with hypoxia or hypercapnia Status: Acute Assessment and Plan: SpO2 dropped into the mid 80s Supplemental oxygen started Wean oxygen to maintain saturation greater than 90% Trend SpO2 Breathing treatment (4) Hypothyroidism: Code(s): E03.9 - Hypothyroidism, unspecified Status: Acute Assessment and Plan: Continue levothyroxine TSH low at 0.159, Free T4 1.57, Free T3 0.60 (5) Elevated LFTs: Code(s): R79.89 - Other specified abnormal findings of blood chemistry Status: Acute Assessment and Plan: AST/ALT 161/276 today Most likely related to infection/COVID hepatitis panel negative RUQ ultrasound normal ultrasound (6) Fever and chills: Code(s): R50.9 - Fever, unspecified Status: Acute Assessment and Plan: Temp noted to be as high as 38.3 Tylenol PRN Blood cultures pending Trend Temp (7) Diarrhea: Code(s): R19.7 - Diarrhea, unspecified Status: Acute Assessment and Plan: Complaints of diarrhea ABD ct just shows covid added Florastor and banatrol Added Imodium Trend output Time Spent With Patient Time with patient: Greater than 35 minutes Subjective Date/time seen: 11/11/21 1300 Interval history: Date/Time: 11/08/21 19:50 Narrative: This is a 56-year-old female with hypothyroidism who presented to the emergency department earlier today from home for evaluation of shortness of breath. She has not been feeling well for a little over a week with symptoms to include cough, fever, chills, decrease in smell and taste, decreased oral intake, fatigue, weakness, and increasing shortness of breath. She has been taking Tylenol and Mucinex at home which seems to help her symptoms for a few hours. Her has had similar symptoms but he is feeling better. She reports testing positive for COVID 19 on 10/31/2021, I believe on a home test, and she has been resting home since that time. Chest x-ray and chest CTA today showed diffuse pneumonia consistent with COVID. Chest CTA was limited due to motion however no pulmonary emboli are suspected. At rest she has no oxygen requirement however with ambulation her SpO2 reportedly dropped into the upper 80s and she is being admitted in this setting. The patient I did discuss possible treatments for COVID and it looks like she received a dose of dexamethasone in the emergency department. As she has no oxygen requirement, dexamethasone is not indicated however due to her elevated inflammatory markers she would be a candidate for remdesivir however she would like to be ?conservative with treatment? and at this time she does not wish for remdesivir or dexamethasone.
--- NOTE | 2021-11-11 13:00 | P.PNIM_ITS ---
Progress Note: A&P Assessment and Plan (1) Pneumonia: Code(s): J18.9 - Pneumonia, unspecified organism Status: Acute Assessment and Plan: * Chest x-ray and CTA Imaging shows diffuse pneumonia consistent with COVID * Chest x-ray Diffuse lung disease with slight interval improvement, consistent with COVID 19 pneumonia. * reports a positive COVID test on 10/31/2021 * Continue Levaquin for now * Blood culture NGTD * sputum cultures pending * SARS-CoV-2 by PCR positive * dexamethasone and remdesivir day 4, increase Decadron to BID * Inflammatory markers: LDH 1801, CRP 31.0, D-dimer 0.86, ferritin 1870, trend every other day * Albuterol q.6 scheduled and p.r.n. * Lovenox 40 mg subQ daily * IS and Digna therapy. * Supplemental oxygen wean to maintain greater than 92% * Added tocilizumab 733mg IV (2) Pneumonia due to COVID-19 virus: Code(s): U07.1 - COVID-19; J12.82 - Pneumonia due to coronavirus disease 2018 Status: Acute Assessment and Plan: * Pneumonia most likely due to COVID-19 though SARS-CoV-2 by PCR positive * Plan is as detailed above. (3) Acute respiratory failure: Code(s): J96.00 - Acute respiratory failure, unspecified whether with hypoxia or hypercapnia Status: Acute Assessment and Plan: * SpO2 dropped into the mid 80s * Supplemental oxygen started * Wean oxygen to maintain saturation greater than 90% * Trend SpO2 * Breathing treatment (4) Hypothyroidism: Code(s): E03.9 - Hypothyroidism, unspecified Status: Acute Assessment and Plan: * Continue levothyroxine * TSH low at 0.159, Free T4 1.57, Free T3 0.60 (5) Elevated LFTs: Code(s): R79.89 - Other specified abnormal findings of blood chemistry Status: Acute Assessment and Plan: * AST/ALT 161/276 today * Most likely related to infection/COVID * hepatitis panel negative * RUQ ultrasound normal ultrasound (6) Fever and chills: Code(s): R50.9 - Fever, unspecified Status: Acute Assessment and Plan: * Temp noted to be as high as 38.3 * Tylenol PRN * Blood cultures pending * Trend Temp (7) Diarrhea: Code(s): R19.7 - Diarrhea, unspecified Status: Acute Assessment and Plan: * Complaints of diarrhea * ABD ct just shows covid * added Florastor and banatrol * Added Imodium * Trend output Time Spent With Patient Time with patient: Greater than 35 minutes Subjective Date/time seen: 11/11/21 1300 Interval history: Date/Time: 11/08/21 19:50 Narrative: This is a 56-year-old female with hypothyroidism who presented to the emergency department earlier today from home for evaluation of shortness of breath. She has not been feeling well for a little over a week with symptoms to include cough, fever, chills, decrease in smell and taste, decreased oral intake, fatigue, weakness, and increasing shortness of breath. She has been taking Tylenol and Mucinex at home which seems to help her symptoms for a few hours. Her has had similar symptoms but he is feeling better. She reports testing positive for COVID 19 on 10/31/2021, I believe on a home test, and she has been resting home since that time. Chest x-ray and chest CTA today showed diffuse pneumonia consistent with COVID. Chest CTA was limited due to motion however no pulmonary emboli are suspected. At rest she has no oxygen
[2021-11-11] MEDS: REMDESIVIR 100 MG/NS 250 ML 100 MG/250 ML BAG 250 MG IVPB (21:51)
[2021-11-12] VITALS (8 sets, daily range): BP systolic 106–126; BP diastolic 64–80; PULSE 69–85; RESP 14–19; TEMP 36–36.6; O2SAT 89–98
[2021-11-12] MEDS: ALBUTEROL SULFATE (*SP) INHALER 4 PUFF INHALATION ×4 (03:30→22:02)
[2021-11-12] MEDS: LEVOTHYROXINE SODIUM 125 MCG TABLET PO (05:46)
[2021-11-12 07:09] LABS: Basophils Percent Auto 0.5 % (0.2-1.2); Eosinophils Percent Auto 0.5 % (0-4.4); Hematocrit 41.8 % (37.0-47.0); Hemoglobin 13.9 g/dL (12.0-15.0); Immature Granulocyte Percent A 2.7 % (0-0.5); Lymphocytes Absolute Auto 0.91 K/mm3 (0.9-3.2); Lymphocytes Percent Auto 24.6 % (18.3-44.2); Mean Corpuscular HGB Conc 33.3 g/dl (32-36); Mean Corpuscular Volume 90.3 fl (80-100); Mean Platelet Volume 9.6 fl (7.4-10.4); Monocytes Absolute Auto 0.3 K/mm3 (0.1-0.6); Monocytes Percent Auto 8.4 % (2.6-8.5); Neutrophils Absolute Auto 2.3 K/mm3 (1.3-6.7); Neutrophils Percent Auto 63.3 % (45.5-73.1); Platelet Count Result 330 k/mm3 (150-375); Red Blood Count 4.63 M/mm3 (4.2-5.4); Red Cell Distribution Width 13.2 % (11.5-14.5); White Blood Count 3.7 K/mm3 (4.5-10.0)
[2021-11-12 07:19] LABS: INR 1.1; Prothrombin Time 14.5 Seconds (11.1-14.7)
[2021-11-12 07:27] LABS: Alanine Aminotransferase 244 U/L (4-35); Albumin Level 3.5 g/dL (3.5-5.1); Alkaline Phosphatase 167 U/L (38-126); Anion Gap 7 mmol/L (8-16); Aspartate Amino Transferase 131 U/L (14-36); Bilirubin,Total 0.6 mg/dL (0.2-1.3); Blood Urea Nitrogen 17 mg/dL (7-17); CRP 5.4 mg/dL (<1.0); Calcium 8.6 mg/dL (8.4-10.2); Carbon Dioxide 26 mmol/L (22-30); Chloride 103 mmol/L (98-107); Estimated CRCL calculation 85 ml/min; Estimated Glomerular Filt Rate > 60; Glucose 98 mg/dL (65-110); Lactate Dehydrogenase 1195 U/L (313-618); Magnesium 2.2 mg/dL (1.6-2.3); Potassium 3.7 mmol/L (3.4-5.0); Sodium 136 mmol/L (137-145)
--- NOTE | 2021-11-12 09:30 | P.PNIM_ITS ---
Progress Note: A&P Assessment and Plan (1) Pneumonia: Code(s): J18.9 - Pneumonia, unspecified organism Status: Acute Assessment and Plan: * Chest x-ray and CTA Imaging shows diffuse pneumonia consistent with COVID * Repeat CTA incase of PE since dimer is continuing to rise * Chest x-ray Diffuse lung disease with slight interval improvement, consistent with COVID 19 pneumonia. * reports a positive COVID test on 10/31/2021 * Continue Levaquin for now * Blood culture NGTD * sputum cultures pending * SARS-CoV-2 by PCR positive * dexamethasone and remdesivir day 5, increase Decadron to BID * Inflammatory markers: LDH 1195, CRP 5.4, D-dimer 1.80, ferritin 1870, trend every other day * Albuterol q.6 scheduled and p.r.n. * Lovenox 40 mg subQ daily * IS and Digna therapy. * Supplemental oxygen wean to maintain greater than 92% * Added tocilizumab 733mg IV (2) Pneumonia due to COVID-19 virus: Code(s): U07.1 - COVID-19; J12.82 - Pneumonia due to coronavirus disease 2018 Status: Acute Assessment and Plan: * Pneumonia most likely due to COVID-19 though SARS-CoV-2 by PCR positive * Plan is as detailed above. (3) Acute respiratory failure: Code(s): J96.00 - Acute respiratory failure, unspecified whether with hypoxia or hypercapnia Status: Acute Assessment and Plan: * SpO2 dropped into the mid 80s * Supplemental oxygen started * Wean oxygen to maintain saturation greater than 90% * Trend SpO2 * Breathing treatment (4) Hypothyroidism: Code(s): E03.9 - Hypothyroidism, unspecified Status: Acute Assessment and Plan: * Continue levothyroxine * TSH low at 0.159, Free T4 1.57, Free T3 0.60 (5) Elevated LFTs: Code(s): R79.89 - Other specified abnormal findings of blood chemistry Status: Acute Assessment and Plan: * AST/ALT 131/244 today * Most likely related to infection/COVID * hepatitis panel negative * RUQ ultrasound normal ultrasound (6) Fever and chills: Code(s): R50.9 - Fever, unspecified Status: Acute Assessment and Plan: * Resolved * Temp noted to be as high as 38.3 * Tylenol PRN * Blood cultures No growth * Trend Temp (7) Diarrhea: Code(s): R19.7 - Diarrhea, unspecified Status: Acute Assessment and Plan: * Complaints of diarrhea * ABD ct just shows covid * added Florastor and banatrol * Added Imodium * Trend output (8) Anxiety: Code(s): F41.9 - Anxiety disorder, unspecified Status: Acute Assessment and Plan: * Could be the reason for the inability to take a deep breath * Add xanax PO * Trend Time Spent With Patient Time with patient: Greater than 35 minutes Subjective Date/time seen: 11/12/21 0930 Interval history: Date/Time: 11/08/21 19:50 Narrative: This is a 56-year-old female with hypothyroidism who presented to the emergency department earlier today from home for evaluation of shortness of breath. She has not been feeling well for a little over a week with symptoms to include cough, fever, chills, decrease in smell and taste, decreased oral intake, fatigue, weakness, and increasing shortness of breath. She has been taking Tylenol and Mucinex at home which seems to help her symptoms for a few hours. Her has had similar symptoms but he is feelin
--- NOTE | 2021-11-12 09:30 | PM.IMPN ---
Progress Note: A&P Assessment and Plan (1) Pneumonia: Code(s): J18.9 - Pneumonia, unspecified organism Status: Acute Assessment and Plan: Chest x-ray and CTA Imaging shows diffuse pneumonia consistent with COVID Repeat CTA incase of PE since dimer is continuing to rise Chest x-ray Diffuse lung disease with slight interval improvement, consistent with COVID 19 pneumonia. reports a positive COVID test on 10/31/2021 Continue Levaquin for now Blood culture NGTD sputum cultures pending SARS-CoV-2 by PCR positive dexamethasone and remdesivir day 5, increase Decadron to BID Inflammatory markers: LDH 1195, CRP 5.4, D-dimer 1.80, ferritin 1870, trend every other day Albuterol q.6 scheduled and p.r.n. Lovenox 40 mg subQ daily IS and Digna therapy. Supplemental oxygen wean to maintain greater than 92% Added tocilizumab 733mg IV (2) Pneumonia due to COVID-19 virus: Code(s): U07.1 - COVID-19; J12.82 - Pneumonia due to coronavirus disease 2018 Status: Acute Assessment and Plan: Pneumonia most likely due to COVID-19 though SARS-CoV-2 by PCR positive Plan is as detailed above. (3) Acute respiratory failure: Code(s): J96.00 - Acute respiratory failure, unspecified whether with hypoxia or hypercapnia Status: Acute Assessment and Plan: SpO2 dropped into the mid 80s Supplemental oxygen started Wean oxygen to maintain saturation greater than 90% Trend SpO2 Breathing treatment (4) Hypothyroidism: Code(s): E03.9 - Hypothyroidism, unspecified Status: Acute Assessment and Plan: Continue levothyroxine TSH low at 0.159, Free T4 1.57, Free T3 0.60 (5) Elevated LFTs: Code(s): R79.89 - Other specified abnormal findings of blood chemistry Status: Acute Assessment and Plan: AST/ALT 131/244 today Most likely related to infection/COVID hepatitis panel negative RUQ ultrasound normal ultrasound (6) Fever and chills: Code(s): R50.9 - Fever, unspecified Status: Acute Assessment and Plan: Resolved Temp noted to be as high as 38.3 Tylenol PRN Blood cultures No growth Trend Temp (7) Diarrhea: Code(s): R19.7 - Diarrhea, unspecified Status: Acute Assessment and Plan: Complaints of diarrhea ABD ct just shows covid added Florastor and banatrol Added Imodium Trend output (8) Anxiety: Code(s): F41.9 - Anxiety disorder, unspecified Status: Acute Assessment and Plan: Could be the reason for the inability to take a deep breath Add xanax PO Trend Time Spent With Patient Time with patient: Greater than 35 minutes Subjective Date/time seen: 11/12/21 0930 Interval history: Date/Time: 11/08/21 19:50 Narrative: This is a 56-year-old female with hypothyroidism who presented to the emergency department earlier today from home for evaluation of shortness of breath. She has not been feeling well for a little over a week with symptoms to include cough, fever, chills, decrease in smell and taste, decreased oral intake, fatigue, weakness, and increasing shortness of breath. She has been taking Tylenol and Mucinex at home which seems to help her symptoms for a few hours. Her has had similar symptoms but he is feeling better. She reports testing positive for COVID 19 on 10/31/2021, I believe on a home test, and she has been resting home since that time. Chest x-ray and chest CTA today showed diffuse pneumonia consistent with COVID. Chest CTA was limited due to motion however no pulmonary emboli are suspected. At rest she has no oxygen requirement however with ambulation her SpO2 reportedly dropped into the upper 80s and she is being admitted in this setting. The patient I did discuss possible treatments for COVID and it looks like she received a dose of dexamethasone in the emergency department. A
[2021-11-12] MEDS: guaiFENesin 12 HR 600 MG TABCR PO ×2 (09:58→21:18)
[2021-11-12] MEDS: FUROSEMIDE INJ 40 MG/4 ML VIAL 20 MG IV PUSH (09:58)
[2021-11-12] MEDS: ENOXAPARIN 40 MG/0.4 ML SYRINGE SUB-Q (09:58)
[2021-11-12] MEDS: ASPIRIN 81 MG CHEWABLE TABLET PO (09:58)
[2021-11-12] MEDS: REMDESIVIR 100 MG/NS 250 ML 100 MG/250 ML BAG 250 MG IVPB (21:17)
[2021-11-12] MEDS: ALPRAZolam (*CRX) 0.125 MG TABLET PO (23:02)
[2021-11-13 03:46] VITALS: BP 110/62; PULSE 75; RESP 16; TEMP 36; O2SAT 91
[2021-11-13] MEDS: LEVOTHYROXINE SODIUM 125 MCG TABLET PO (06:06)
[2021-11-13 07:47] LABS: Basophils Percent Auto 0.7 % (0.2-1.2); Eosinophils Absolute Auto 0.1 K/mm3 (0-0.3); Eosinophils Percent Auto 2.3 % (0-4.4); Hematocrit 41.8 % (37.0-47.0); Hemoglobin 14.2 g/dL (12.0-15.0); Immature Granulocyte Absolute 0.09 K/mm3 (0.00-0.031); Immature Granulocyte Percent A 2.1 % (0-0.5); Lymphocytes Absolute Auto 0.94 K/mm3 (0.9-3.2); Lymphocytes Percent Auto 21.5 % (18.3-44.2); Mean Corpuscular Hemoglobin 29.9 pg (26-34); Mean Platelet Volume 9.2 fl (7.4-10.4); Monocytes Absolute Auto 0.4 K/mm3 (0.1-0.6); Monocytes Percent Auto 8.2 % (2.6-8.5); Neutrophils Absolute Auto 2.9 K/mm3 (1.3-6.7); Neutrophils Percent Auto 65.2 % (45.5-73.1); Platelet Count Result 415 k/mm3 (150-375); Red Blood Count 4.75 M/mm3 (4.2-5.4); Red Cell Distribution Width 13.2 % (11.5-14.5); White Blood Count 4.4 K/mm3 (4.5-10.0)
[2021-11-13 08:00] LABS: Alanine Aminotransferase 189 U/L (4-35); Albumin Level 3.5 g/dL (3.5-5.1); Alkaline Phosphatase 155 U/L (38-126); Anion Gap 8 mmol/L (8-16); Aspartate Amino Transferase 80 U/L (14-36); Bilirubin,Total 0.7 mg/dL (0.2-1.3); Blood Urea Nitrogen 16 mg/dL (7-17); Calcium 8.4 mg/dL (8.4-10.2); Carbon Dioxide 26 mmol/L (22-30); Chloride 102 mmol/L (98-107); Estimated CRCL calculation 85 ml/min; Estimated Glomerular Filt Rate > 60; Glucose 100 mg/dL (65-110); Magnesium 2.3 mg/dL (1.6-2.3); Potassium 3.6 mmol/L (3.4-5.0); Sodium 136 mmol/L (137-145)
[2021-11-13] MEDS: ENOXAPARIN 40 MG/0.4 ML SYRINGE SUB-Q (08:50)
[2021-11-13] MEDS: guaiFENesin 12 HR 600 MG TABCR PO (08:50)
[2021-11-13] MEDS: ASPIRIN 81 MG CHEWABLE TABLET PO (08:51)
--- NOTE | 2021-11-13 12:30 | PM.DS ---
DS: Admitting Diagnosis Discharge Date Date of service 11/13/2021 at 12:30 p.m. Admitting Diagnosis COVID-19 DS: Discharge Diagnosis Discharge Diagnosis (1) Pneumonia: Code(s): J18.9 - Pneumonia, unspecified organism Status: Acute Assessment and Plan: Chest x-ray and CTA Imaging shows diffuse pneumonia consistent with COVID Repeat CTA incase of PE since dimer is continuing to rise Chest x-ray Diffuse lung disease with slight interval improvement, consistent with COVID 19 pneumonia. reports a positive COVID test on 10/31/2021 Continue Levaquin for now Blood culture NGTD sputum cultures pending SARS-CoV-2 by PCR positive dexamethasone and remdesivir day 5, increase Decadron to BID Inflammatory markers: LDH 1195, CRP 5.4, D-dimer 1.80, ferritin 1870, trend every other day Albuterol q.6 scheduled and p.r.n. Lovenox 40 mg subQ daily IS and Digna therapy. Supplemental oxygen wean to maintain greater than 92% Added tocilizumab 733mg IV (2) Pneumonia due to COVID-19 virus: Code(s): U07.1 - COVID-19; J12.82 - Pneumonia due to coronavirus disease 2018 Status: Acute Assessment and Plan: Pneumonia most likely due to COVID-19 though SARS-CoV-2 by PCR positive Plan is as detailed above. (3) Acute respiratory failure: Code(s): J96.00 - Acute respiratory failure, unspecified whether with hypoxia or hypercapnia Status: Acute Assessment and Plan: SpO2 dropped into the mid 80s Supplemental oxygen started Wean oxygen to maintain saturation greater than 90% Trend SpO2 Breathing treatment (4) Hypothyroidism: Code(s): E03.9 - Hypothyroidism, unspecified Status: Acute Assessment and Plan: Continue levothyroxine TSH low at 0.159, Free T4 1.57, Free T3 0.60 (5) Elevated LFTs: Code(s): R79.89 - Other specified abnormal findings of blood chemistry Status: Acute Assessment and Plan: AST/ALT 131/244 today Most likely related to infection/COVID hepatitis panel negative RUQ ultrasound normal ultrasound (6) Fever and chills: Code(s): R50.9 - Fever, unspecified Status: Acute Assessment and Plan: Resolved Temp noted to be as high as 38.3 Tylenol PRN Blood cultures No growth Trend Temp (7) Diarrhea: Code(s): R19.7 - Diarrhea, unspecified Status: Acute Assessment and Plan: Complaints of diarrhea ABD ct just shows covid added Florastor and banatrol Added Imodium Trend output (8) Anxiety: Code(s): F41.9 - Anxiety disorder, unspecified Status: Acute Assessment and Plan: Could be the reason for the inability to take a deep breath Add xanax PO Trend DS: Summary Hospital Course Hospital Course: patient is a 56-year-old female with past medical history of hyper both thyroidism the who presented to the ED for cough, fever, chills, decrease in smell and taste, loss of appetite, fatigue, weakness, and increased shortness of breath. Patient was treated with supplemental oxygen due to a low SpO2 in the mid 80s. Supplemental oxygen was provided and weaned successfully to room air. Patient has been able to walk without desatting. Patient was also provided with breathing treatments. Liver enzymes were grossly elevated however hepatitis panel was negative right upper quadrant ultrasound was also normal. Liver enzymes have slowly been trending downward as well. Patient did exhibit fevers upon her 1st day. Blood cultures were drawn and came back with no growth. Inflammatory markers have been trended through the entire visit And have been trending downward. Patient was given remdesivir and Decadron it is for treatment. IS and Digna therapy were also encouraged. Chest x-ray and CTA showed diffuse pneumonia consistent with COVID-19. Patient stated that she is feeling a lot better
--- NOTE | 2021-11-13 12:30 | P.DS_ITS ---
DS: Admitting Diagnosis Discharge Date Date of service 11/13/2021 at 12:30 p.m. Admitting Diagnosis COVID-19 DS: Discharge Diagnosis Discharge Diagnosis (1) Pneumonia: Code(s): J18.9 - Pneumonia, unspecified organism Status: Acute Assessment and Plan: * Chest x-ray and CTA Imaging shows diffuse pneumonia consistent with COVID * Repeat CTA incase of PE since dimer is continuing to rise * Chest x-ray Diffuse lung disease with slight interval improvement, consistent with COVID 19 pneumonia. * reports a positive COVID test on 10/31/2021 * Continue Levaquin for now * Blood culture NGTD * sputum cultures pending * SARS-CoV-2 by PCR positive * dexamethasone and remdesivir day 5, increase Decadron to BID * Inflammatory markers: LDH 1195, CRP 5.4, D-dimer 1.80, ferritin 1870, trend every other day * Albuterol q.6 scheduled and p.r.n. * Lovenox 40 mg subQ daily * IS and Digna therapy. * Supplemental oxygen wean to maintain greater than 92% * Added tocilizumab 733mg IV (2) Pneumonia due to COVID-19 virus: Code(s): U07.1 - COVID-19; J12.82 - Pneumonia due to coronavirus disease 2018 Status: Acute Assessment and Plan: * Pneumonia most likely due to COVID-19 though SARS-CoV-2 by PCR positive * Plan is as detailed above. (3) Acute respiratory failure: Code(s): J96.00 - Acute respiratory failure, unspecified whether with hypoxia or hypercapnia Status: Acute Assessment and Plan: * SpO2 dropped into the mid 80s * Supplemental oxygen started * Wean oxygen to maintain saturation greater than 90% * Trend SpO2 * Breathing treatment (4) Hypothyroidism: Code(s): E03.9 - Hypothyroidism, unspecified Status: Acute Assessment and Plan: * Continue levothyroxine * TSH low at 0.159, Free T4 1.57, Free T3 0.60 (5) Elevated LFTs: Code(s): R79.89 - Other specified abnormal findings of blood chemistry Status: Acute Assessment and Plan: * AST/ALT 131/244 today * Most likely related to infection/COVID * hepatitis panel negative * RUQ ultrasound normal ultrasound (6) Fever and chills: Code(s): R50.9 - Fever, unspecified Status: Acute Assessment and Plan: * Resolved * Temp noted to be as high as 38.3 * Tylenol PRN * Blood cultures No growth * Trend Temp (7) Diarrhea: Code(s): R19.7 - Diarrhea, unspecified Status: Acute Assessment and Plan: * Complaints of diarrhea * ABD ct just shows covid * added Florastor and banatrol * Added Imodium * Trend output (8) Anxiety: Code(s): F41.9 - Anxiety disorder, unspecified Status: Acute Assessment and Plan: * Could be the reason for the inability to take a deep breath * Add xanax PO * Trend DS: Summary Hospital Course Hospital Course: patient is a 56-year-old female with past medical history of hyper both thyroidism the who presented to the ED for cough, fever, chills, decrease in smell and taste, loss of appetite, fatigue, weakness, and increased shortness of breath. Patient was treated with supplemental oxygen due to a low SpO2 in the mid 80s. Supplemental oxygen was provided and weaned successfully to room air. Patient has been able to walk without desatting. Patient was also provided with breathing treatments. Liver enzymes were
[2021-11-13 14:00] VITALS: BP 117/75; PULSE 82; RESP 14; TEMP 36.9; O2SAT 90
== END 2021-11-13 18:19 | disposition home or self-care (01) | DRG 177 ==
LOC: ANHED 17:40 → ANH3MEDSUR 18:35
PROVIDERS: Physician Assistant; Admitting Provider Internal Medicine; Emergency Provider Emergency Medicine; Visit Provider Nurse Practitioner
DX: U07.1 COVID-19 (principal); J12.82 Pneumonia due to coronavirus disease 2019; J96.00 Acute respiratory failure, unspecified whether with hypoxia or hypercapnia; E03.9 Hypothyroidism, unspecified; R79.89 Other specified abnormal findings of blood chemistry; R19.7 Diarrhea, unspecified; F41.9 Anxiety disorder, unspecified; Z79.82 Long term (current) use of aspirin; Z79.899 Other long term (current) drug therapy; Z88.1 Allergy status to other antibiotic agents
CPT/HCPCS: 36415; 71045; 71275; 74177; 76705; 80053; 80074; 81001; 82728; 83615; 83735; 83880; 84439; 84443; 84480; 85025; 85027; 85380; 85610; 86140; 87040; 93005; 94640; 94667; 94668; 96365; 96367; 96372; 96375; 99285; A9270; C9803; G0378; J1100; J1650; J1940; J1956; J2405; J7030; Q0249; Q9967; U0003; U0005